=== PATIENT | female | born 1990 ===

== ENCOUNTER 2017-02-27 06:57 | Day surgery (SDC) | payer MEDICAID ==
[~2017-02-27 06:57] MED LIST: Lidocaine 1%/Sod Bicarbonate in NS 8.4% 1 ML Syringe PRN; Sodium Chloride 0.9% 10 ML Syringe FLUSH PRN
[2017-02-27] MEDS ORDERED: Bupivacaine 0.5%/EPINEPHrine 1:200,000 50 ML MDV ONE (07:05)
[2017-02-27] MEDS ORDERED: Lidocaine 1% with EPINEPHrine 1:100,000 20 ML MDV ONE (07:05)
[2017-02-27] MEDS ORDERED: ceFAZolin 1 GM Vial ONE (07:19)
[2017-02-27] MEDS ORDERED: Rocuronium 50 MG/5 ML Vial ONE (07:19)
[2017-02-27] MEDS ORDERED: Propofol 200 MG/20 ML SDV ONE (07:19)
[2017-02-27] MEDS ORDERED: Ondansetron 4 MG/2 ML SDV ONE (07:19)
[2017-02-27] MEDS ORDERED: Midazolam 1 MG/ML 2 ML SDV ONE (07:20)
[2017-02-27] MEDS ORDERED: fentaNYL 250 MCG/5 ML SDV ONE (07:20)
[2017-02-27] MEDS: Lactated Ringers 1,000 ML IV SCH ×2 (07:30→12:27)
--- NOTE | 2017-02-27 07:31 | PCM.PREANE ---
Preanesthetic Assessment - Anesthesia/Transfusion/Family Hx Anesthesia History: Prior Anesthesia Without Reaction Type of Anesthesia Reaction: Unknown Family History of Anesthesia Reaction: No Transfusion History: Unknown - Review of Systems General: No Symptoms Pulmonary: No Symptoms, Other Cardiovascular: No Symptoms Gastrointestinal: No symptoms Neurological: No Symptoms Other: Reports: None - Physical Assessment NPO Status Date: 02/26/17 NPO Status Time: 23:55 Pulse: 89 O2 Sat by Pulse Oximetry: 98 Respiratory Rate: 16 Blood Pressure: 129/84 Temperature: 36.9 C Weight: 95.164 kg ASA Class: 2 Mental Status: Alert & Oriented x3 Airway Class: Mallampati = 2 Thyro-Mental Finger Breadths: 3 Mouth Opening Finger Breadths: 3 ROM/Head Extension: Full Lungs: Clear to auscultation, Normal respiratory effort Cardiovascular: Regular Rate, Regular Rhythm - Allergies Allergies/Adverse Reactions: Allergies Allergy/AdvReac Type Severity Reaction Status Date / Time No Known Allergies Allergy Verified 02/26/17 16:29 - Blood Blood Available: No Product(s) Available: None - Anesthesia Plan Pre-Op Medication Ordered: None - Acknowledgements Anesthesia Type Planned: General Anesthesia Pt an Appropriate Candidate for the Planned Anesthesia: Yes Alternatives and Risks of Anesthesia Discussed w Pt/Guardian: Yes Pt/Guardian Understands and Agrees with Anesthesia Plan: Yes PreAnesthesia Questionnaire Cardiovascular History: Reports: None Respiratory History: Reports: None Gastrointestinal History: Reports: Other (See Below) Other Gastrointestinal History: abdominal pain [employer] History: Reports: Musculoskeletal History: Reports: None Neurological History: Reports: None Psychiatric History: Reports: None Endocrine/Metabolic History: Reports: None Hematologic History: Reports: None Immunologic History: Reports: None Oncologic (Cancer) History: Reports: None Dermatologic History: Reports: None - Past Surgical History Head Surgeries/Procedures: Reports: None HEENT Surgical History: Reports: Tonsillectomy Cardiovascular Surgical History: Reports: None Female Surgical History: Reports: Section Endocrine Surgical History: Reports: None Musculoskeletal Surgical History: Reports: None - SUBSTANCE USE Smoking Status *Q: Never Smoker Recreational Drug Use History: No - HOME MEDS Home Medications: Home Meds Levonorgestrel [Mirena] 1 unit .ROUTE ASDIRECTED 02/26/17 [History] - CURRENT (IN HOUSE) MEDS Current Meds: Current Medications Lactated Ringer's (Ringers, Lactated) 1,000 mls @ 125 mls/hr IV ASDIRECTED CARLY Stop: 02/27/17 23:00 Lidocaine/Sodium Bicarbonate (Buffered Lidocaine 1% In Ns 8.4%) 0.25 ml .XX ONETIME PRN PRN Reason: Prior to IV Start Stop: 02/27/17 18:00 Sodium Chloride (Saline Flush) 10 ml FLUSH ASDIRECTED PRN PRN Reason: Keep Vein Open Stop: 02/27/17 18:00 Discontinued Medications Bupivacaine HCl/Epinephrine Bitart (Marcaine 0.5%/Epinephrine 1:200,000) Confirm Administered Dose 50 ml .ROUTE .STK-MED ONE Stop: 02/27/17 07:06 Cefazolin Sodium (Ancef) Confirm Administered Dose 2 gm .ROUTE .STK-MED ONE Stop: 02/27/17 07:20 Fentanyl (Sublimaze) Confirm Administered Dose 250 mcg .ROUTE .STK-MED ONE Stop: 02/27/17 07:21 Lidocaine/Epinephrine (Xylocaine 1% With Epinephrine 1:100,000) Confirm Administered Dose 20 ml .ROUTE .STK-MED ONE Stop: 02/27/17 07:06 Midazolam HCl (Versed 1 Mg/Ml) Confirm Administered Dose 2 mg .ROUTE .STK-MED ONE Stop: 02/27/17 07:21 Ondansetron HCl (Zofran) Confirm Administered Dose 4 mg .ROUTE .STK-MED ONE Stop: 02/27/17 07:20 Propofol (Diprivan 20 Ml) Confirm Administered Dose 200 mg .ROUTE .STK-MED ONE Stop: 02/27/17 07:20 Rocuronium [place] (Zemuron) Confirm Administered Dose 50 mg .ROUTE .STK-MED ONE Stop: 02/27/17 07:20
[2017-02-27] MEDS ORDERED: Metoclopramide 10 MG/2 ML SDV IVPUSH PRN (07:36)
[2017-02-27] MEDS ORDERED: fentaNYL 100 MCG/2 ML SDV IVPUSH PRN (07:36)
[2017-02-27] MEDS ORDERED: Midazolam 1 MG/ML 2 ML SDV IVPUSH PRN (07:36)
[2017-02-27] MEDS ORDERED: HYDROmorphone 0.5 MG/0.5 ML Syringe IVPUSH PRN (08:40)
[2017-02-27] MEDS ORDERED: Dexamethasone 4 MG/ML 5 ML MDV ONE (08:47)
[2017-02-27] MEDS ORDERED: Lactated Ringers 1,000 ML ONE (08:49)
[2017-02-27] MEDS ORDERED: fentaNYL 100 MCG/2 ML SDV ONE (08:52)
[2017-02-27] MEDS ORDERED: Ketorolac 30 MG/ML SDV ONE (08:53)
[2017-02-27] MEDS ORDERED: HYDROmorphone 1 MG/ML Syringe ONE ×2 (09:07→09:09)
--- NOTE | 2017-02-27 09:49 | PCM.OPNOTE ---
- General Post-Op/Procedure Note Date of Surgery/Procedure: 02/27/17 Operative Procedure(s): Laparoscopic cholecystectomy Findings: chronic inflammation and two yellow gall stones Pre Op Diagnosis: Biliary colic secondary to cholelithiasis Post-Op Diagnosis: Chronic cholecystitis secondary to cholelithiasis Anesthesia Technique: General ET tube, Local Primary Surgeon: Josef Bermudez Pathology: Gallbladder and contents EBL in mLs: 5 Complications: None Condition: Good Free Text/Narrative:: After adequate general endotracheal tube anesthesia was obtained the patient's abdomen was prepped and draped in the usual fashion for a laparoscopic cholecystectomy. A supraumbilical incision was made with a 15 blade followed by insertion of a 12 mm camera port. CO2 pneumoperitoneum was obtained. 3 -- 5 mm working ports were placed along the right subcostal margin. The gallbladder dome was grasped and it as well as the liver were retracted in a cephalad direction. I grasped Rianna's pouch and dissected out the cystic duct and cystic artery. These structures were clipped in continuity then divided with scissors. There was a small branch of the cystic artery which needed to be clipped because of some slight bleeding. The gallbladder was taken down in a retrograde fashion and placed in a bag. The gallbladder was removed through the umbilicus. I irrigated out the gallbladder bed and found it to be hemostatic and no bowel injury was seen. No bile duct injury was seen as well. The abdomen was decannulated under direct vision with no bleeding from the port sites. The umbilical port site was closed with a [id number] 0 Vicryl. The subcutaneous tissues and skin were closed with Vicryl as well. Steri-Strips and gauze were used for the dressing. Photographs are taken for the patient for the record. There were no procedural complications. She was taken to the recovery area extubated in stable condition.
--- NOTE | 2017-02-27 09:50 | PCM.POSTAN ---
POST ANESTHESIA ASSESSMENT - MENTAL STATUS Mental Status: alert, oriented - VITAL SIGNS Pulse Rate: 118 SaO2: 99 Resp Rate: 16 Blood Pressure: 152/95 Temperature: 36.6 C - RESPIRATORY Respiratory Status: respiratory rate WNL, airway patent, O2 saturation stable, supplemental oxygen - CARDIOVASCULAR CV Status: pulse rate WNL, blood pressure stable - GASTROINTESTINAL GI Status: no symptoms - PAIN Pain Score: 3 (meds given) - POST OP HYDRATION Hydration Status: adequate & stable
[2017-02-27] MEDS ORDERED: Ondansetron 4 MG Tab.DIS PO ONE (12:15)
[2017-02-27] MEDS ORDERED: Acetaminophen/oxyCODONE 325-5 MG Tab PO ONE (12:30)
[2017-02-27 14:50] VITALS: BP 129/79
== END 2017-02-27 14:05 | disposition home or self-care (01) ==
LOC: JD.SDS 06:57
PROVIDERS: ATTEND Surgery
PROC: 0FT44ZZ Resection of Gallbladder, Percutaneous Endoscopic Approach (ICD-10-PCS; principal; 2017-02-27)
DX: K80.64 Calculus of gallbladder and bile duct with chronic cholecystitis without obstruction (principal); Z97.5 Presence of (intrauterine) contraceptive device; F17.200 Nicotine dependence, unspecified, uncomplicated
CPT/HCPCS: 47562; A9270; J0690; J1100; J1170; J1885; J2250; J2405; J2765; J3010; J7120; 00790; J2704